=== PATIENT | female | born 1995 | race Caucasian/White ===

== ENCOUNTER → 2016-11-24 | Outpatient (CLI) | payer OTHER ==
--- NOTE | 2016-11-24 15:27 | XR ---
EXAMINATION TYPE: XR knee complete RT DATE OF EXAM: 11/24/2016 3:15 PM COMPARISON: NONE HISTORY: 21-year-old female right knee sprain, twisting injury at work, pain. TECHNIQUE: 3 views FINDINGS: No evidence for acute fracture, subluxation, or dislocation. No significant knee joint effusion. Exte nsor mechanism is intact. IMPRESSION: No acute osseous abnormality seen.
== END ==
LOC: RADXRMAIN 15:05
PROVIDERS: ATTEND Emergency Medicine
DX: S83.91XA Sprain of unspecified site of right knee, initial encounter (principal)